=== PATIENT | female | born 1930 | race African-American/Black ===

== ENCOUNTER 2018-06-20 12:21 | Emergency (ER) | payer OTHER ==
[~2018-06-20] VITALS: Ht 165.1 cm; Wt 47.0 kg
[2018-06-20] MEDS ORDERED: SODIUM CHLORIDE 0.9% 1,000 ML IV ONE (14:34)
[2018-06-20 14:53] LABS: BASOPHILS % 0.5 % (0.0-2.0); EOSINOPHILS % 2.7 % (0.0-5.0); HEMOGLOBIN. 12.5 g/dL (12.0-16.0); LYMPHOCYTES % 18.3 % (20.0-50.0); MEAN CORPUSCULAR HEMOGLOBIN 28.9 pg (28.0-32.0); MEAN CORPUSCULAR VOLUME 87.6 fL (81.0-99.0); MEAN PLATELET VOLUME 8.4 fl (7.4-10.4); MONOCYTES % 8.8 % (2.0-8.0); NEUTROPHILS % 69.7 % (40.0-76.0); PLATELET 372 x1000/uL (130-400); RED BLOOD CELL COUNT 4.34 mill/uL (4.2-5.4); RED CELL DISTRIBUTION WIDTH 13.3 % (11.6-14.6)
[2018-06-20 15:02] LABS: CHLORIDE 108 mEq/L (98-107)
[2018-06-20 15:23] LABS: CLARITY URINE CLEAR (CLEAR); COLOR URINE DARK YELLOW (YELLOW); KETONES URINE 1+ (NEGATIVE); LEUKOCYTE ESTERASE URINE NEGATIVE (NEGATIVE); NITRITE URINE NEGATIVE (NEGATIVE); OCCULT BLOOD URINE NEGATIVE (NEGATIVE); PROTEIN URINE NEGATIVE (NEGATIVE); SPECIFIC GRAVITY URINE 1.028 (1.005-1.030)
[2018-06-20 15:43] LABS: INR 1.2; PROTHROMBIN TIME 11.8 sec (9.1-11.1)
[2018-06-20 19:04] VITALS: BP 129/71
[2018-06-20 20:11] LABS: AMMONIA 11 uMol/L (<32)
== END 2018-06-20 22:12 | disposition short-term general hospital (02) ==
LOC: ER 12:21 → CANRESERV 15:42 → ENRESERV 15:42 → EDBEDREQSVC 16:17 → EDBEDREQ 16:17 → SUPCPDRO 17:12 → ENRESERV 20:22 → CANRESERV 20:22 → ER 22:12 → CANBEDREQ 06-21 16:09
DX: R62.7 Adult failure to thrive (principal); E86.0 Dehydration; R53.1 Weakness; R74.0 Nonspecific elevation of levels of transaminase and lactic acid dehydrogenase [LDH]; G93.41 Metabolic encephalopathy; M25.551 Pain in right hip; G30.9 Alzheimer's disease, unspecified; F02.80 Dementia in other diseases classified elsewhere, unspecified severity, without behavioral disturbance, psychotic disturbance, mood disturbance, and anxiety; R63.0 Anorexia; Z68.1 Body mass index [BMI] 19.9 or less, adult
CPT/HCPCS: 36415; 51702; 70450; 71045; 73502; 73552; 80053; 81003; 82140; 82962; 83605; 83880; 84145; 84484; 85025; 85610; 87040; 87086; 93005; 93970; 96360; 96361; 99285; J7030; A4315